=== PATIENT | female | born 1990 | race Hispanic/Latino ===

== ENCOUNTER 2024-11-19 08:45 | Day surgery (SDC) | payer BC ==
[2024-11-18 10:28] LABS: BASOPHILS # (AUTO) 0.04 K/uL (0.00-0.20); BASOPHILS % (AUTO) 0.5 % (0.0-5.0); EOSINOPHILS % (AUTO) 1.2 % (0.0-8.0); IMMATURE GRANULOCYTE ABSOLUTE 0.01 K/uL (0-1); LYMPHOCYTES # (AUTO) 2.9 K/uL (1.0-4.8); LYMPHOCYTES % (AUTO) 36.5 % (21.0-51.0); MEAN CORPUSCULAR HEMOGLOBIN 24.7 pg (27.0-33.0); MEAN CORPUSCULAR HGB CONC 30.8 g/dL (32.0-36.0); MEAN CORPUSCULAR VOLUME 80.3 fL (79-99); MONOCYTES # (AUTO) 0.4 K/uL (0.1-1.0); NEUTROPHILS # (AUTO) 4.6 K/uL (1.8-7.7); NEUTROPHILS % (AUTO) 56.7 % (40.0-77.0); PLATELET COUNT (AUTO) 340 K/uL (130-400); RED BLOOD CELL COUNT(AUTO) 4.73 MIL/uL (4.00-5.50); RED CELL DISTRIBUTION WIDTH 14.7 % (11.0-15.5); WHITE BLOOD COUNT (AUTO) 8.1 K/uL (4.8-10.8)
[2024-11-18 10:34] VITALS: BP 131/74; PULSE 69; RESP 18; TEMP 97.3
[2024-11-18 10:40] LABS: CREATININE 0.7 mg/dL (0.5-1.0); POTASSIUM 3.9 mmol/L (3.5-5.1)
[2024-11-18 10:58] LABS: PROTHROMBIN TIME 10.6 SEC (9.6-11.6)
[2024-11-18 10:59] LABS: PARTIAL THROMBOPLASTIN TIME 25.9 SEC (26.3-35.5)
--- NOTE | 2024-11-18 11:42 | EKG ---
[facility] Test Date: 2024-11-18 Test Time: 10:20:47 Pat Name: OMERO CORREA Department: [facility] Room: [facility] Gender: F Banquet Stewardess: [id number] : 1990 Requested By: BISI ANTHONY Order Number: [id number] Reading MD: Kishore Stark Measurements Intervals [place] Rate: 66 P: 52 AK: 133 QRS: 33 QRSD: 86 T: 4 QT: 385 QTc: 404 Interpretive Statements Sinus rhythm No previous ECG available for comparison Electronically Signed On 11-20-2024 20:01:03 CDT by Kishore Stark Please click the below link to view image of tracing.
[~2024-11-19] VITALS: Ht 162.6 cm; Wt 78.7 kg
[2024-11-19] VITALS (14 sets, daily range): BP systolic 101–118; BP diastolic 42–72; PULSE 55–82; RESP 15–18; TEMP 97.3–97.7
[2024-11-19] MEDS: LACTATED RINGERS 1000ML 1,000 ML IV ONE (09:27)
[2024-11-19] MEDS: ceFAZolin SODIUM 2 GM VIAL ONE (09:27)
[2024-11-19] MEDS ORDERED: GABAPENTIN 300 MG CAPSULE ONE (09:38)
[2024-11-19] MEDS ORDERED: FAMOTIDINE 20MG VIAL IV ONE (09:38)
[2024-11-19] MEDS ORDERED: acetaMINOPHEN 325 MG TAB ONE (09:38)
[2024-11-19] MEDS ORDERED: ketaMINE 50MG/ML SYRINGE 50 MG/ML DISP.SYRIN ONE (10:44)
[2024-11-19] MEDS ORDERED: LIDOCAINE PF 100MG/5ML (2%) SYRINGE 5ML ONE (10:46)
[2024-11-19] MEDS ORDERED: proPOFol 10 MG/ML 20ML VIAL IV ONE (10:46)
[2024-11-19] MEDS ORDERED: rocuRONium bROMide 10MG/1ML 5ML VL ONE (10:46)
[2024-11-19] MEDS ORDERED: FENTanyl CITRate PF 50 MCG/1 ML 2ML VIAL ONE (10:47)
[2024-11-19] MEDS: INDOCYANINE GREEN 25 MG VIAL IJ ONE (12:06)
[2024-11-19] MEDS ORDERED: dexaMETHasone SOD PHOSPHATE 10MG/ML 1ML VIAL ONE (12:26)
[2024-11-19] MEDS ORDERED: ondanSETRON 4MG INJ ONE (12:26)
[2024-11-19] MEDS: BUPIvacaine/PF 0.25% 30ML VIAL IJ ONE (12:37)
[2024-11-19] MEDS ORDERED: NEOSTIGMINE METHYLSULFATE 1MG/ML IV ONE (13:17)
[2024-11-19] MEDS ORDERED: GLYCOPYRROLATE 0.2 MG/ML 5 ML VIAL ONE (13:17)
--- NOTE | 2024-11-19 13:35 | OP ---
Operative Note: DATE OF PROCEDURE: 11/19/24 SURGEON: BISI ANTHONY MD ELECTRIC BRAIN WAVE EQUIPMENT MECHANIC: [Please review operative record] ANESTHESIA: [General and local] ANESTHESIOLOGIST/MANAGER BUSINESS: [Please review operative record] PREOPERATIVE DIAGNOSIS: [Symptomatic cholelithiasis] POSTOPERATIVE DIAGNOSIS: [Same] SYNOPSIS: [Chronically inflamed gallbladder] PROCEDURE: [Robotic assisted laparoscopic cholecystectomy. IC green cholangiography] ESTIMATED BLOOD LOSS: [15 cc] INDICATIONS: [Patient is a 33-year-old female with chronic right upper quadrant postprandial pain who was found to have cholelithiasis. Patient failed conservative therapy with analgesics and dietary changes. Recommendation was given for surgical removal of the gallbladder. Risks, benefits, alternatives were discussed with the patient. Patient had all her questions answered. Patient agreed to proceed with surgical procedure.] DESCRIPTION OF PROCEDURE: [After appropriate consent was obtained, the patient was transferred to the operating room and placed in supine position on the operating table. SCDs were placed, preop antibiotics were given. Patient underwent induction of general anesthesia, endotracheal intubation. Patient was then prepped and draped in usual sterile fashion. Time-out was performed. Through a left subcostal incision, Veress needle was inserted into the peritoneal cavity. Insufflation was allowed to 12 mmHg. Through a supraumbilical incision, 8 mm trocar and laparoscope were inserted into the peritoneal cavity using GitHub. Veress needle and this vicinity were examined with no signs of injury. Rest of my trocars were all placed under direct visualization. Patient was positioned on a reverse Trendelenburg at 20 position. The Charles robot was docked at this time. Upon evaluation of the gallbladder, it appeared chronically inflamed, there were a few omental adhesions that were taken down with a combination of blunt and hook electrocautery. Gallbladder fundus was grasped and retracted cephalad, gallbladder infundibulum was grasped and retracted medially and laterally in order to expose Calot's triangle. Calot's triangle was dissected using a combination of both hook electrocautery and blunt dissection. With the assistance of IC green cholangiography appropriate identification of the cystic duct was possible. Also the common bile duct was identified. No signs of ductal dilatation or filling defects were obvious. Once cystic artery and cystic duct were appropriately identified, the cystic duct was clipped 3 times and sharply divided leaving two of the clips behind. The cystic artery was clipped one time with this clip staying behind after cauterizing the artery and sharply dividing it. The gallbladder was then removed from the gallbladder fossa using bipolar energy. Hemostasis on the gallbladder fossa was obtained with bipolar energy. The gallbladder was then placed in an Endo-Catch bag. The Charles robot at this time was undocked. At this time the gallbladder was removed through one of the port incisions. Final inspection revealed adequate hemostasis, no concerns for injury. At this time all instruments were removed. Abdomen was deflated. Counts were correct at the end of the case. Incisions were closed with 4-0 Monocryl suture. Dermabond was applied over the incisions. Patient tolerated the procedure well. Transferred to recovery in a good condition.] BISI ANTHONY MD Nov 19, 2024 13:35
--- NOTE | 2024-11-19 13:37 | DS ---
Discharge Summary Hospital Course Patient is a 33-year-old female who was admitted from the outpatient setting for elective robotic assisted laparoscopic cholecystectomy for symptomatic cholelithiasis on 11/19/2024. No issues during the procedure. Patient tolerated the procedure well. Patient with no major concerns at this time. Remains in recovery at this time. Hemodynamically stable, afebrile. Aerating well on 3 L nasal cannula. Normal sinus rhythm. Abdomen is benign, incisions clean dry and intact. No rebound or guarding. Appropriately tender to palpation. Patient will be discharged home once cleared per anesthesia protocol. Return precautions given including fevers of 101.5 or higher, worsening abdominal pain, intractable nausea vomiting, or just any concerns about her health. Patient to advance diet as tolerated. Avoid lifting more than 20 lb for a month. Postop medications have been submitted to the patient's pharmacy, follow up already in place. Okay to shower 24 hours after procedure. BISI ANTHONY MD Nov 19, 2024 13:37
[2024-11-19] MEDS: hydroMORPHone 1 MG INJ ONE (13:49)
[2024-11-19] MEDS: ondanSETRON 4MG INJ ONE (13:52)
== END 2024-11-19 15:10 | disposition home or self-care (01) ==
LOC: DAH 08:45
PROVIDERS: ATTEND Surgery
DX: K80.12 Calculus of gallbladder with acute and chronic cholecystitis without obstruction (principal); K83.8 Other specified diseases of biliary tract; K64.9 Unspecified hemorrhoids; Z79.899 Other long term (current) drug therapy; Z87.898 Personal history of other specified conditions
CPT/HCPCS: 80048; 84703; 85025; 85610; 85730; 86850; 86900; 86901; 36415; 93005; 47563; 88304; A6260; A4663; J7120 ×2; A4215 ×2; J3490 ×4; J3010; J1171; J1100; J0665; J2003; J2704; J2405 ×2; J2710; J0690; A4930; A4213; A4222; A4221; A4216; A4223 ×2; A4600; S2900